=== PATIENT | female | born 1975 | race Hispanic/Latino ===

== ENCOUNTER 2019-09-07 16:14 | Inpatient (IN) ==
--- NOTE | 2019-09-07 16:44 | PROVIDER DOCUMENTATION ---
HPI-Neurological Disorder - General Chief Complaint: Altered Mental Status Stated Complaint: ams Time Seen by Provider: 09/07/19 16:25 Source: family ( and family friend) Allergies/Adverse Reactions: Patient Allergies Allergy/AdvReac Type Severity Reaction Status Date / Time No Known Allergies Allergy Verified 09/07/19 17:38 Home Medications: Home Medication List Medication Instructions Recorded Confirmed Last Taken Type Omeprazole [Prilosec] 40 mg PO DAILY #30 capsule. 07/13/18 Unknown Rx - History of Present Illness-Neuro Nature of Presenting Problem: Patient and are Scottish speaking but spoke through a bilingual family friend. Patient was said to have been anxious after breakfast today and was pacing back and forth at home today. Around 2 am today, pt was said to have difficulty speaking and also problem with comprehension. When she did speak, her speech was confusing and she could not obey commands either in [place] or [place] which was new and is surprised at this. No previous sxs, fall or injury She has a h/o of thyroid dz and has not had meds in a long time Context: reports: found unresponsive by family (awake, inappropriate response) Character of Altered Mental Status: reports: confused Any recent trauma/injury?: reports: none Cognitive Baseline: alert but disoriented Associated Symptoms: reports: confusion Similar Symptoms Previously?: No Review of Systems - Adult - REVIEW OF SYSTEMS - ADULT ROS:: ROS per family Constitutional: reports: no symptoms reported Eyes: reports: no symptoms reported Ears, Nose, Mouth & Throat: reports: no symptoms reported Cardiovascular: reports: no symptoms reported Respiratory: reports: no symptoms reported Gastrointestinal: reports: no symptoms reported Genitourinary: reports: no symptoms reported Musculoskeletal: reports: no symptoms reported Integumentary: reports: no symptoms reported Neurological: reports: see HPI. denies: headache/migraines, loss of balance, seizure, syncope Psychiatric: reports: anxiety. denies: alcohol/drug dependence, depression, suicidal thoughts Endocrine: reports: no symptoms reported Hematologic/Lymphatic: reports: no symptoms reported Allergic/Immunologic: reports: no symptoms reported All Other Systems: Reviewed and Negative Past History - Adult - PAST MEDICAL HISTORY-ADULT Review of Records: reports: Nursing Assessment Review, Medications Reviewed, Social history reviewed & non-contributory. Major Childhood Illnesses: reports: denies history Cardiovascular: reports: denies history Respiratory: reports: denies history Gastrointestinal: reports: denies history Obstetrical/Gynecological: reports: denies history Genitourinary: reports: denies history Musculoskeletal: reports: denies history Neurological: reports: denies history Endocrine/Immune: reports: thyroid disorder Other Conditions: reports: denies history - SOCIAL HISTORY Smoking: denies (per ) Substance Use: none/never (per ) Alcohol Use Frequency: never (per ) Living Situation: family Physical Exam- Neurological - Physical Exam-Neuro Initial Vital Signs Reviewed: Yes General Appearance: alert (looking apprehensive) Eye Exam: bilateral eye: normal inspection, PERRL HENMT: normocephalic/atraumatic, moist mucous membranes Head Injury: no evidence of injury Neck: non-tender, full range of motion, supple Respiratory: chest non-tender, lungs clear, normal breath sounds Cardiovascular: regular rate, rhythm, no edema Abdominal Exam: non tender, soft Peripheral Pulses: radial (R): 3+, radial (L): 3+ Extremity: non-tender, no pedal edema director sales support Exam: PERRL Neurologic: other (unable to follow commands though awake and allert) Integumentary: normal color Psych/Mental Status: anxious - Glascow Coma Scale Best Eye Response: (4) open spontaneously Best Verbal Response: (4) confused conversation Best Motor Response: (4) withdraws to pain Progress - PLAN OF CARE/RESULTS Progress/Plan/Lab Results: Vital Signs - 8 hr 09/07/19 15:32 09/07/19 15:54 09/07/19 16:00 Temperature 98.5 F Pulse Rate 80 69 Respiratory Rate 17 Blood Pressure 155/94 146/96 O2 Sat by Pulse Oximetry 97 99 100 09/07/19 16:15 09/07/19 16:22 09/07/19 16:30 Temperature Pulse Rate 62 69 65 Respiratory Rate 15 13 18 Blood Pressure 129/89 O2 Sat by Pulse Oximetry 99 89 L 96 09/07/19 16:31 09/07/19 16:45 09/07/19 17:00 Temperature Pulse Rate 61 63 77 Respiratory Rate 0 L 16 19 Blood Pressure 131/84 139/92 O2 Sat by Pulse Oximetry 90 L 99 100 09/07/19 18:01 09/07/19 18:30 09/07/19 18:32 Temperature Pulse Rate 77 Respiratory Rate 26 H 22 21 Blood Pressure 152/84 72/44 O2 Sat by Pulse Oximetry 100 99 09/07/19 18:40 09/07/19 19:00 Temperature Pulse Rate Respiratory Rate 42 H 18 Blood Pressure 146/96 141/92 O2 Sat by Pulse Oximetry 95 Laboratory Results - last 24 hr 09/07/19 09/07/19 09/07/19 15:20 15:20 15:20 WBC RBC Hgb Hct MCV MCH MCHC RDW Std Deviation Plt Count MPV Immature Gran % (Auto) Neut % (Auto) Lymph % (Auto) Josephine % (Auto) Eos % (Auto) Baso % (Auto) Immature Gran # (Auto) Neut # (Auto) Lymph # (Auto) Josephine # (Auto) Eos # (Auto) Baso # (Auto) PT INR PTT (Actin FS) Sodium Potassium Chloride Carbon Dioxide Anion Gap BUN Creatinine Estimated GFR/1.73 m2 BUN/Creatinine Ratio Glucose POC Glucose Calculated Osmolality Calcium Total Bilirubin AST ALT Alkaline Phosphatase Troponin T Total Protein Albumin Globulin Albumin/Globulin Ratio TSH Urine Source CLEAN CATCH Urine Color STRAW Urine Turbidity CLEAR Urine pH 7.5 Ur Specific Bud 1.010 Urine Protein NEGATIVE Ur Glucose (Stick) NEGATIVE Ur Ketones (Stick) NEGATIVE Urine Blood NEGATIVE Urine Nitrite NEGATIVE Urine Bilirubin NEGATIVE Urobilinogen Dipstick NORMAL Urine Leukocytes NEGATIVE Urine WBC (Auto) <10 Urine RBC (Auto) <10 U Epithel Cells (Auto) <10 Urine Bacteria (Auto) NEGATIVE Urine Test NEGATIVE Urine Opiates Screen NONE DETECTED Ur Oxycodone Screen NONE DETECTED Ur Methadone, Qual NONE DETECTED Ur Barbiturates Screen NONE DETECTED Ur Phencyclidine Scrn NONE DETECTED Ur Amphetamines Screen NONE DETECTED U Benzodiazepines Scrn NONE DETECTED Urine Cocaine Screen NONE DETECTED U Cannabinoids Screen NONE DETECTED 09/07/19 09/07/19 09/07/19 16:27 16:27 16:27 WBC 6.80 RBC 4.16 L Hgb 11.1 L Hct 34.9 L MCV 83.9 MCH 26.7 L MCHC 31.8 L RDW Std Deviation 15.3 H Plt Count 427 H MPV 9.4 Immature Gran % (Auto) 0.0 Neut % (Auto) 74.2 Lymph % (Auto) 16.6 L Josephine % (Auto) 5.7 Eos % (Auto) 2.6 Baso % (Auto) 0.9 H Immature Gran # (Auto) 0.00 Neut # (Auto) 5.04 Lymph # (Auto) 1.13 L Josephine # (Auto) 0.39 Eos # (Auto) 0.18 Baso # (Auto) 0.06 PT 13.6 INR 1.03 PTT (Actin FS) 26.8 Sodium 141 Potassium 4.2 Chloride 104 Carbon Dioxide 26 Anion Gap 11 BUN 16 Creatinine 0.6 Estimated GFR/1.73 m2 > 60 BUN/Creatinine Ratio 27 Glucose 110 H POC Glucose Calculated Osmolality 283 Calcium 9.5 Total Bilirubin < 0.15 L AST 10 ALT 8 L Alkaline Phosphatase 69 Troponin T Total Protein 7.0 Albumin 4.2 Globulin 2.8 Albumin/Globulin Ratio 1.5 TSH Urine Source Urine Color Urine Turbidity Urine pH Ur Specific Bud Urine Protein Ur Glucose (Stick) Ur Ketones (Stick) Urine Blood Urine Nitrite Urine Bilirubin Urobilinogen Dipstick Urine Leukocytes Urine WBC (Auto) Urine RBC (Auto) U Epithel Cells (Auto) Urine Bacteria (Auto) Urine Test Urine Opiates Screen Ur Oxycodone Screen Ur Methadone, Qual Ur Barbiturates Screen Ur Phencyclidine Scrn Ur Amphetamines Screen U Benzodiazepines Scrn Urine Cocaine Screen U Cannabinoids Screen 09/07/19 09/07/19 09/07/19 16:27 16:27 17:23 WBC RBC Hgb Hct MCV MCH MCHC RDW Std Deviation Plt Count MPV Immature Gran % (Auto) Neut % (Auto) Lymph % (Auto) Josephine % (Auto) Eos % (Auto) Baso % (Auto) Immature Gran # (Auto) Neut # (Auto) Lymph # (Auto) Josephine # (Auto) Eos # (Auto) Baso # (Auto) PT INR PTT (Actin FS) Sodium Potassium Chloride Carbon Dioxide Anion Gap BUN Creatinine Estimated GFR/1.73 m2 BUN/Creatinine Ratio Glucose POC Glucose 112 H Calculated Osmolality Calcium Total Bilirubin AST ALT Alkaline Phosphatase Troponin T < 0.010 Total Protein Albumin Globulin Albumin/Globulin Ratio TSH 4.61 H Urine Source Urine Color Urine Turbidity Urine pH Ur Specific Bud Urine Protein Ur Glucose (Stick) Ur Ketones (Stick) Urine Blood Urine Nitrite Urine Bilirubin Urobilinogen Dipstick Urine Leukocytes Urine WBC (Auto) Urine RBC (Auto) U Epithel Cells (Auto) Urine Bacteria (Auto) Urine Test Urine Opiates Screen Ur Oxycodone Screen Ur Methadone, Qual Ur Barbiturates Screen Ur Phencyclidine Scrn Ur Amphetamines Screen U Benzodiazepines Scrn Urine Cocaine Screen U Cannabinoids Screen Orders Category Date Time Status Cardiac Monitoring DIRECTED Care 09/07/19 16:29 Active Finger Stick Blood Sugar (ED) DIRECTED Care 09/07/19 16:29 Completed Saline Loc NOW Care 09/07/19 16:29 Active CHEST-PORTABLE [RAD] Stat Exams 09/07/19 16:[address] HEAD W/O CONTRAST [CT] Stat Exams 09/07/19 16:11 Completed CBC WITH ELECTRONIC DIFF [HEME] Stat Lab 09/07/19 16:27 Completed COMPREHENSIVE METABOLIC PANEL [CHEM] Stat Lab 09/07/19 16:27 Completed TEST-URINE [PREG] Stat Lab 09/07/19 15:20 Completed PROTIME WITH INR [COAG] Stat Lab 09/07/19 16:27 Completed PTT [COAG] Stat Lab 09/07/19 16:27 Completed TROPONIN T Stat Lab 09/07/19 16:27 Completed TSH Stat Lab 09/07/19 16:27 Completed URINALYSIS W/POSS RFLX CULT [URINALYSIS] Stat Lab 09/07/19 15:20 Completed URINE DRUG SCREEN Stat Lab 09/07/19 15:20 Completed Ondansetron [Zofran] Med 09/07/19 18:49 Discontinued 4 mg IV NOW ONE Ondansetron [Zofran] Med 09/07/19 20:19 Discontinued 4 mg IV NOW ONE EKG [EKG] Stat Ther 09/07/19 16:29 Draft Result Diagrams: 09/07/19 16:27 09/07/19 16:27 - REASSESSMENT Reassessment #1 Time Reassessed: 19:50 Status: unchanged (still confused, still nauseous. Will give zofran and admit pt) - CONSULTS/PCP/HOSPITALIST Notification #1 *Consult/PCP/Hospitalist*: Dr Reid Time Discussed: 20:18 Consult Disposition: Admit (accepts admission) Departure - Departure Date of Disposition Decision: 09/07/19 Time of Disposition Decision: 20:20 DIAGNOSIS: Altered mental state Disposition: ADMITTED INPATIENT 09 Certified Medical Emergency: Emergent Condition: Fair Referrals and Follow-Ups: None,PCP [Primary Care Provider] - - Critical Care Note This patient required my direct & personal management of CC.: No Attestation - Physician/ LANRE Attestation Patient care was provided by Advanced Practice Provider:: No The physician spent face to face time with patient:: Yes Advanced Practice Provider documentation review:: Supervising physician onsite and consulted in the evaluation and care of this patient. The physician did have a face to face encounter with the patient.
[2019-09-07 16:54] LABS: URINE SOURCE CLEAN CATCH
[2019-09-07 16:56] LABS: BASO# 0.06 X1000 (0.0-0.2); BASO% 0.9 % (0.0-0.8); EOS# 0.18 X1000 (0.0-0.7); EOS% 2.6 % (0.0-10.0); HEMATOCRIT 34.9 % (37.0-47.0); HEMOGLOBIN 11.1 g/dL (12.0-16.0); LYMPH# 1.13 X1000 (1.2-3.4); LYMPH% 16.6 % (20.5-51.1); MCH 26.7 PG (27-31); MCHC 31.8 g/dL (33-37); MCV 83.9 FL (81-99); MONO# 0.39 X1000 (0.11-0.59); MONO% 5.7 % (1.7-9.3); MPV 9.4 FL (7.4-10.4); NEUT# 5.04 X1000 (1.4-6.5); NEUT% 74.2 % (42.2-75.2); PLT 427 X1000 (130-400); RBC 4.16 XMIL (4.2-5.4); RDW 15.3 % (11.5-14.5)
[2019-09-07 16:57] LABS: BILIRUBIN URINE NEGATIVE (NEGATIVE); BLOOD URINE NEGATIVE (NEGATIVE); COLOR STRAW; GLUCOSE URINE NEGATIVE (NEGATIVE); KETONE URINE NEGATIVE (NEGATIVE); LEUKOCYTES URINE NEGATIVE (NEGATIVE); NITRITE URINE NEGATIVE (NEGATIVE); PH URINE 7.5; PROTEIN URINE NEGATIVE (NEGATIVE); TURBIDITY URINE CLEAR (CLEAR); UR EPITHELIAL CELLS <10 /HPF (<10); URINE BACTERIA NEGATIVE /HPF; URINE RBC <10 /HPF (<10); URINE WBC <10 /HPF (<10); UROBILINOGEN URINE NORMAL (NORMAL)
--- NOTE | 2019-09-07 17:04 | Diag Imaging Result Doc PS360 ---
EXAM: CHEST-PORTABLE 09/07/2019 HISTORY: stroke like symptoms TECHNIQUE: AP portable upright at 1656 COMMENT: There is no evidence of acute cardiac or pulmonary disease. The heart size appears smaller than on 07/12/2018. Otherwise are has been no significant change. IMPRESSION: No acute disease. Electronically signed by Alfredo Ni 09/07/2019 5:01 PM
[2019-09-07 17:08] LABS: INR 1.03; PROTIME 13.6 Seconds (11.0-16.0); PTT 26.8 Seconds (22.3-41.8)
[2019-09-07 17:08] LABS: UR AMPHETAMINES QUAL NONE DETECTED (NONE DETECT); UR BARBITUATES QUAL NONE DETECTED (NONE DETECT); UR BENZODIAZEPIN QUAL NONE DETECTED (NONE DETECT); UR CANNABINOIDS QUAL NONE DETECTED (NONE DETECT); UR COCAINE QUAL NONE DETECTED (NONE DETECT); UR METHADONE QUAL NONE DETECTED (NONE DETECT); UR OPIATES QUAL NONE DETECTED (NONE DETECT); UR OXYCODONE QUAL NONE DETECTED (NONE DETECT); UR PCP QUAL NONE DETECTED (NONE DETECT)
[2019-09-07 17:15] LABS: AGAP 11; ALB/GLOB RATIO 1.5; ALBUMIN 4.2 g/dL (3.5-5.0); ALKALINE PHOSPHATASE 69 U/L (32-104); BUN 16 mg/dL (8-22); CALCIUM 9.5 mg/dL (8.8-10.2); CHLORIDE 104 mmol/L (98-107); COSMO 283; CREATININE 0.6 mg/dL (0.5-0.9); ESTIMATED GFR > 60; GLUCOSE 110 mg/dL (70-104); GOT 10 U/L (10-30); GPT 8 U/L (10-36); POTASSIUM 4.2 mmol/L (3.5-5.1); SODIUM 141 mmol/L (136-145); TCO2 26 mmol/L (25-35); TOTAL BILIRUBIN < 0.15 mg/dL (0.20-1.00)
--- NOTE | 2019-09-07 17:31 | EKG Report ---
Test Performed on : 09/07/2019 4:56:26 PM Test Reason : Stroke like symptoms Blood Pressure : / mmHG Vent. Rate : 059 BPM Atrial Rate : 059 BPM P-R Int : 142 ms QRS Dur : 082 ms QT Int : 408 ms P-R-T Axes : 051 006 008 degrees QTc Int : 403 ms Sinus bradycardia. Cannot rule out Anterior infarct , age undetermined Abnormal ECG When compared with ECG of 13-JUL-2018 06:54, No significant change was found Unconfirmed Result
--- NOTE | 2019-09-07 17:58 | Diag Imaging Result Doc PS360 ---
EXAM: CT HEAD W/O CONTRAST 09/07/2019 HISTORY: altered mental status TECHNIQUE: This exam was performed using automated exposure control, adjustment of mA or kV according to patient size, and/or use of iterative reconstruction technique. COMMENT: There is no evidence of mass effect, bleed, or abnormal extra-axial fluid collection. The calvarium is intact. The visualized paranasal sinuses are clear. The left mastoid air cells are hypoplastic. IMPRESSION: No evidence of acute intracranial disease. Electronically signed by Alfredo Ni 09/07/2019 5:56 PM
[2019-09-07] MEDS ORDERED: ZOFRAN IV ONE ×2 (18:49→20:19)
[2019-09-08] MEDS ORDERED: PHENERGAN IV PRN (01:20)
[2019-09-08] MEDS ORDERED: SODIUM CHLORIDE 0.9% INJ PRN (01:20)
[2019-09-08] MEDS: NS 1,000 ML IV SCH ×3 (01:40→21:53)
--- NOTE | 2019-09-08 01:55 | HISTORY AND PHYSICAL ---
CHIEF COMPLAINT: Altered mental status. HISTORY OF PRESENTING ILLNESS: A 54-year-old female with a history of hypothyroidism and depression who is brought to the emergency department due to patient being altered and confused. Apparently she was not making sense when she was talking and family could not understand what was going on. The patient is mostly Haitian speaking and most of the history is obtained from other family members. The patient at time of my examination was moderately confused and did not really make any sense with any answers regarding any questions asked. PAST MEDICAL HISTORY: Includes hypothyroidism, depression. PAST SURGICAL HISTORY: Unknown. ALLERGIES: No known drug allergies. CURRENT MEDICATIONS: Family does not recall. Nursing staff will reconcile. SOCIAL HISTORY: No history of smoking, alcohol or illicit drug use. FAMILY HISTORY: No history of coronary artery disease. REVIEW OF SYSTEMS: Limited due to patient being altered. PHYSICAL EXAMINATION: GENERAL: The patient is resting comfortably but is moderately confused. VITAL SIGNS: Temperature 98.5 degrees, pulse 88, respiration 17, blood pressure 155/94. HEENT: Atraumatic, normocephalic. PERRLA. NECK: No masses. CHEST: Clear to auscultation. CARDIOVASCULAR: Regular rate and rhythm. ABDOMEN: Soft, positive bowel sounds. EXTREMITIES: No edema. NEUROLOGIC: She is awake and alert. However, she is moderately confused. GENITOURINARY: No bladder distention. SKIN: Warm. LABORATORIES AND STUDIES: WBC 6.80, hemoglobin 11.1, hematocrit 34.9, platelets 427,000. Sodium 141, potassium 4.2, chloride 104, CO2 is 26, BUN is 16, creatinine is 0.6, glucose 110. TSH is 4.61. Urine is negative. CT of the head, no evidence of any acute intracranial disease. Chest x- ray, no acute disease. ASSESSMENT: A 44-year-old female with a history of hypothyroidism and depression who had presented to emergency department due to patient being altered and moderately confused. Apparently, family was concerned she was not making any sense with any of her answers to questions given. She was seen in the ED and due to her presenting symptoms she will need admission for further management. 1. Altered mental status. 2. Depression with psychotic episode and paranoia. 3. Hypothyroidism. PLAN: 1. We will admit patient to medical floor with telemetry. 2. We will continue with neuro checks. 3. We will consult Neurology. 4. We may need to consult Psychiatry once she is cleared from Neurology. 5. We will restart her home medications. 6. Put patient on DVT prophylaxis with SCD. 7. We will continue to follow, reassess and make further recommendation based on patient's clinical course. cc: Luis Reid MD MTDD
[2019-09-08] MEDS: SYNTHROID PO SCH (06:06)
[2019-09-08 08:14] LABS: BASO# 0.02 X1000 (0.0-0.2); BASO% 0.2 % (0.0-0.8); HEMATOCRIT 33.2 % (37.0-47.0); HEMOGLOBIN 10.3 g/dL (12.0-16.0); MCH 26.3 PG (27-31); MCV 84.9 FL (81-99); MONO# 0.77 X1000 (0.11-0.59); MONO% 7.2 % (1.7-9.3); MPV 9.4 FL (7.4-10.4); NEUT# 8.56 X1000 (1.4-6.5); NEUT% 79.6 % (42.2-75.2); PLT 413 X1000 (130-400); RBC 3.91 XMIL (4.2-5.4); RDW 15.3 % (11.5-14.5); WBC 10.75 X1000 (4.8-10.8)
[2019-09-08 08:37] LABS: AGAP 14; BUN 17 mg/dL (8-22); CALCIUM 9.3 mg/dL (8.8-10.2); CHLORIDE 103 mmol/L (98-107); COSMO 281; CREATININE 0.5 mg/dL (0.5-0.9); ESTIMATED GFR > 60; GLUCOSE 108 mg/dL (70-104); POTASSIUM 3.8 mmol/L (3.5-5.1); SODIUM 140 mmol/L (136-145); TCO2 23 mmol/L (25-35)
--- NOTE | 2019-09-08 12:31 | PROGRESS NOTE ---
DATE: 09/08/2019 SUBJECTIVE: The patient was sleeping when I evaluated her. She was able to wake up and she sat by herself. I do not see any weakness or facial deviation, but she started talking nonsense and I did understand most of the words, most of them were in [place], but she was not making any sense. Her was at the bedside. He was speaking [place] also with me, she is not able to say her name, date of . She is not able to say her 's name. As per the , this is the first time that this ever happened ever happened, she never had this kind of problem before. As per the nurse, she told her that she has been hearing some voices and she has a headache. Neurology Department has been consulted. CT scan of the head did not show any abnormality. I will probably get an MRI to rule out any stroke in the frontal area tomorrow, but probably this patient will need to be seen by psychiatric department. OBJECTIVE: Vital Signs: Temperature 98.4 degrees, pulse 73, respiratory rate 18, blood pressure 123/76, oxygen saturation 100% on room air. HEENT: Head normocephalic, no trauma, PERRLA. Neck: Supple, no JVD. No masses. Central trachea. Chest: Clear to auscultation. No wheezing. No rales. Abdomen: Soft, nontender, nondistended. No hepatosplenomegaly. Extremities: No edema, no clubbing, no cyanosis. Neurological: This patient is sleepy, but arousable. She was able to sit by herself. I do not see any focal weakness. She is moving all 4 extremities spontaneously. She is talking nonsense and in [place] and some of the words I am not able to understand, the which is at the bedside and he is also speaking [place]. He does not understand what she says as well. Her speech is not slurred. LABORATORY: WBC 10.7, hemoglobin 10.3, hematocrit 33.2, platelets 413,000, sodium 140, potassium 3.8, chloride 103, bicarbonate 23, BUN 17, creatinine 0.5, glucose 108, calcium 9.3. ASSESSMENT AND PLAN: 1. Altered mental status, it looks like this is the first time that this patient has this kind of symptoms, as per the this started yesterday around 2 p.m. I am not quite sure but apparently she has a past medical history of depression and anxiety. She also has a history of hypothyroidism. 2. I will get an MRI of the head tomorrow and I will ask Neurology Department to evaluate this patient. If we rule out all the organic problems, likely we will need to call the Psychiatry Department to evaluate this patient. But we will monitor for now. 3. Hypothyroidism. Continue with Synthroid. 4. As per the , she has a history of anxiety, apparently she has been under a lot of stress recently. cc: Ceasar Pelayo MD
[2019-09-08] MEDS: TYLENOL PO PRN (16:19)
[2019-09-08] MEDS: LOTRIMIN 1% CREAM TOP SCH ×2 (16:19→20:02)
[2019-09-09] MEDS: SYNTHROID PO SCH (06:08)
[2019-09-09] MEDS: LOTRIMIN 1% CREAM TOP SCH ×2 (09:00→21:46)
--- NOTE | 2019-09-09 12:41 | Diag Imaging Result Doc PS360 ---
EXAM: MRI BRAIN W/WO CONTRAST INDICATION: Encephalopathy, R/O stroke COMPARISON: None. FINDINGS: There is no evidence of acute infarct. There is abnormal patchy T2/FLAIR hyperintensity involving the subcortical white matter throughout the brain including the frontal, parietal, occipital, and temporal lobes. There is also a focus of abnormal signal in the periventricular white matter on the right. There is no associated enhancement and no restricted diffusion. This pattern is nonspecific. However, viral encephalitis and demyelinating processes such as acute disseminated encephalomyelitis are differential considerations. There is no discrete intracranial mass, mass effect, or intracranial hemorrhage. There is no abnormal intracranial enhancement. The surrounding soft tissues and bony structures are essentially unremarkable. IMPRESSION: Fairly extensive abnormal patchy T2/FLAIR white matter signal hyperintensity involving both cerebral hemispheres that is predominantly subcortical. This pattern is nonspecific. Consider viral encephalitis or a demyelinating process. Electronically signed by John Jaramillo 09/09/2019 12:38 PM
[2019-09-09] MEDS ORDERED: XYLOCAINE 1%/EPI 1:100,000 INJ ONE ×2 (14:50→15:00)
[2019-09-09] MEDS ORDERED: ATIVAN IV ONE ×2 (15:25→16:11)
[2019-09-09] MEDS ORDERED: NS IV SCH (15:30)
[2019-09-09] MEDS ORDERED: VANCOMYCIN IV PER PHARMACY MISC SCH (15:30)
[2019-09-09] MEDS ORDERED: ZOVIRAX IV SCH (15:30)
[2019-09-09] MEDS: NS 1,000 ML IV SCH (16:20)
[2019-09-09] MEDS ORDERED: VANCOMYCIN 2,000 MG in NS 500 ML IV ONE (16:30)
[2019-09-09] MEDS: ROCEPHIN 2 GM in NS 50 ML IV SCH (16:33)
[2019-09-09] MEDS: NS IV SCH (16:33)
[2019-09-09] MEDS: ZOVIRAX IV SCH (16:33)
--- NOTE | 2019-09-09 18:56 | PROGRESS NOTE ---
DATE: 09/09/2019 SUBJECTIVE: The patient is resting comfortably in bed. She is still confused. She is still not able to talk or follow commands. We did an MRI that showed extensive abnormal patchy white matter signal hyperintensity involving both cerebral hemispheres that is predominantly subcortical. This pattern is nonspecific. Consider viral encephalitis or a demyelinating process. Neurology Department evaluated this patient. We had a conversation about treatment and we have decided to put this patient on antibiotics and also antiviral medication IV immediately given her MRI findings. Her neck is soft is supple. I do not see any signs of meningismus, but we will cover that. I will put this patient on ceftriaxone, vancomycin and acyclovir, also Dr. Read will perform a lumbar puncture. OBJECTIVE: Vital Signs: Temperature 98 degrees, pulse 61, respiratory rate 20, blood pressure 118/55, oxygen saturation 100% on room air. HEENT: Head normocephalic, no trauma. PERRLA. Neck: Supple. No JVD. No masses. Central trachea. Chest: Clear to auscultation. No wheezing. No rales. Abdomen: Soft, nontender, nondistended. No hepatosplenomegaly. Extremities: No edema, no clubbing, no cyanosis. Neurological: This patient is sleepy, but arousable. She does not have any focal weakness. Her neck is supple. Her speech is not slurred. I do not see any focal weakness, but she is confused and I cannot understand what she says. LABORATORY: WBC 10, hemoglobin 10.3, hematocrit 33.2, platelets 413. Sodium 140, potassium 3.8, chloride 103, bicarbonate 23, BUN 17, creatinine 0.5, glucose 108, calcium 9.3. ASSESSMENT AND PLAN: 1. Altered mental status. We have an MRI that showed an abnormal patchy white matter signal hyperintensity involving both cerebral hemispheres that is predominantly subcortical. This pattern is nonspecific, and we need to consider a viral encephalitis and/or demyelinating process. I have placed this patient on antibiotics and also acyclovir. I will monitor this patient closely. Neurology department will do a lumbar puncture. We will wait for the results and more recommendations. 2. Hypothyroidism. Continue with Synthroid. 3. She has some urinary retention. I will put a Quintero catheter. I will continue with IV fluids. cc: Ceasar Pelayo MD
--- NOTE | 2019-09-09 20:15 | CONSULTATION ---
DATE OF CONSULTATION: 09/09/2019 REASON FOR CONSULT: Altered mental status. HISTORY OF PRESENT ILLNESS: This is a 44-year-old, right-handed female who was admitted 2 days ago with altered mental status. History is from the patient's via assistance with the film composer phone line. Apparently, the patient had been well prior to onset of her current symptoms. They denied any recent illness of any sort. On Monday morning, she woke up and seemed well, but later that morning went to the restroom and called out for help and has been confused since around this time. She's been mumbling and not speaking coherently. Some of the things that she was saying did not make sense. Sometimes she recognizes her , and other times she does not. She has been confused in the hospital as well. There has been no loss of consciousness or falling. No seizure like events witnessed. She has never had anything like this before. When some of the symptoms started, she was holding her right arm at her side, but that resolved. 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 PAST MEDICAL HISTORY: Hypothyroidism. There is report of depression in the chart. FAMILY HISTORY: No history of neurologic disease. Mother from some type of feminine cancer. Positive diabetes. SOCIAL HISTORY: No tobacco, alcohol, or illicits. She is and has children. ALLERGIES: No known drug allergies listed and confirmed with the patient's . CURRENT MEDICATIONS: He reports she has not been taking her single medication of thyroid pill for some time now. She does take a 1-A-Day multivitamin daily. REVIEW OF SYSTEMS: Unobtainable due to patient's mental status. PHYSICAL EXAMINATION: Vital Signs: Currently afebrile, but she has had a 100.4 temperature yesterday on two occasions. Blood pressure 155/94 on admission, current 123/78. Pulse 60s. Respirations 20. Oxygen saturation 100% on room air. General: Ms. Mccarty is supine in bed with eyes closed. No meningismus. While speaking on the phone to the film composer and to her , she eventually opens her eyes and regards. On formal examination, she tracks. She does not answer questions from the film composer. She seemed to remain alert once she woke up. She does not follow commands. She does not speak. Pupils are equal, round, reactive to bright light. Gaze conjugate. Ocular movements are full and she has full lateral eye movements. Blinks to threat. Face symmetric with equal activation. Tongue is midline. I could not visualize the palate. She is seen to spontaneously move her limbs and with limited testing, I do not detect an underlying focal asymmetry. She responds to mild noxious stimuli in all extremities. Reflexes 1 to 2+ at the wrists bilaterally, 2+ at the knees. I could not get her to relax enough to test at the ankles. No clonus. Plantar response is downgoing. She was unable to cooperate with the remainder of the examination. DIAGNOSTICS: Head CT noncontrast on admission: No acute findings. MRI of the brain personally reviewed. This is with and without contrast, showing extensive abnormal patchy T2 FLAIR white matter signal hyperintensity bilaterally in the cerebral hemispheres, mostly subcortical. No abnormal postcontrast enhancement. LABS: Reviewed in the chart. Normal white count. Platelet count 400,000. Coagulation studies are normal. Normal sodium, BUN, creatinine. Blood sugars mildly elevated. TSH 4.6. Urinalysis and toxicology are negative. ASSESSMENT AND PLAN: Global encephalopathy with abnormal MRI findings as detailed above. Differential includes inflammatory, autoimmune etiologies, Also infectious causes, favoring viral or smoldering etiologies. Other etiologies are not excluded. Given her altered mental status, fever and additionally the MRI findings, will proceed with lumbar puncture at this time. Informed consent was obtained via the use of the film composer line and is in the chart. Will also order contrasted MRI of the cervical and thoracic cord and send labwork. She will need an EEG as well. Thank you for the consultation. Will follow. cc: Henrietta Read MD [facility]
[2019-09-10] MEDS: NS IV SCH ×3 (00:21→16:55)
[2019-09-10] MEDS: ZOVIRAX IV SCH ×3 (00:21→16:55)
[2019-09-10 01:20] LABS: URINE SOURCE CATH
[2019-09-10 01:49] LABS: BILIRUBIN URINE NEGATIVE (NEGATIVE); BLOOD URINE NEGATIVE (NEGATIVE); COLOR YELLOW; GLUCOSE URINE NEGATIVE (NEGATIVE); KETONE URINE 40 mg/dL (NEGATIVE); LEUKOCYTES URINE NEGATIVE (NEGATIVE); NITRITE URINE NEGATIVE (NEGATIVE); PH URINE 6.5; PROTEIN URINE TRACE mg/dL (NEGATIVE); SP GRAVITY URINE 1.017; TURBIDITY URINE HAZY (CLEAR); UROBILINOGEN URINE NORMAL (NORMAL)
[2019-09-10 01:50] LABS: UR EPITHELIAL CELLS <10 /HPF (<10); URINE BACTERIA NEGATIVE /HPF; URINE RBC <10 /HPF (<10); URINE WBC <10 /HPF (<10)
[2019-09-10] MEDS: ROCEPHIN 2 GM in NS 50 ML IV SCH ×2 (03:48→16:54)
[2019-09-10] MEDS: VANCOMYCIN 1,500 MG in NS 250 ML IV SCH ×2 (05:01→16:55)
[2019-09-10] MEDS: NS 1,000 ML IV SCH ×2 (05:01→18:46)
[2019-09-10] MEDS: SYNTHROID PO SCH (06:02)
[2019-09-10 08:00] LABS: BASO# 0.04 X1000 (0.0-0.2); BASO% 0.6 % (0.0-0.8); EOS# 0.07 X1000 (0.0-0.7); HEMATOCRIT 32.9 % (37.0-47.0); HEMOGLOBIN 10.4 g/dL (12.0-16.0); LYMPH# 1.52 X1000 (1.2-3.4); LYMPH% 22.7 % (20.5-51.1); MCH 26.5 PG (27-31); MCHC 31.6 g/dL (33-37); MCV 83.9 FL (81-99); MONO# 0.46 X1000 (0.11-0.59); MONO% 6.9 % (1.7-9.3); MPV 9.4 FL (7.4-10.4); NEUT# 4.61 X1000 (1.4-6.5); NEUT% 68.8 % (42.2-75.2); PLT 330 X1000 (130-400); RBC 3.92 XMIL (4.2-5.4); RDW 14.9 % (11.5-14.5)
[2019-09-10 09:02] LABS: AGAP 14; ALB/GLOB RATIO 1.3; ALBUMIN 3.6 g/dL (3.5-5.0); ALKALINE PHOSPHATASE 48 U/L (32-104); BUN 15 mg/dL (8-22); CALCIUM 8.8 mg/dL (8.8-10.2); CHLORIDE 104 mmol/L (98-107); COSMO 281; CREATININE 0.5 mg/dL (0.5-0.9); ESTIMATED GFR > 60; GLUCOSE 77 mg/dL (70-104); GOT 10 U/L (10-30); GPT 5 U/L (10-36); POTASSIUM 3.5 mmol/L (3.5-5.1); SODIUM 141 mmol/L (136-145); TCO2 23 mmol/L (25-35); TOTAL BILIRUBIN 0.35 mg/dL (0.20-1.00); TOTAL PROTEIN 6.3 g/dL (6.3-8.3)
[2019-09-10] MEDS ORDERED: ATIVAN IV ONE ×2 (09:52→11:45)
--- NOTE | 2019-09-10 09:58 | OPERATIVE NOTE ---
PROCEDURE DATE: 09/09/2019 PROCEDURE PERFORMED: Lumbar puncture. DESCRIPTION OF PROCEDURE: Informed consent was obtained from the patient's using the hand spring repairer telephone line. The patient was prepped and draped in the usual sterile fashion. She was placed in the left lateral decubitus position. Local 1% lidocaine was used to anesthetize the area. The spinal needle was inserted just below the skin. The patient had received some sedation but she was unable to remain still and broke the sterile field. The procedure was aborted. There was no blood loss. cc: Henrietta Read MD [facility]
[2019-09-10] MEDS: LOTRIMIN 1% CREAM TOP SCH ×2 (10:14→22:05)
--- NOTE | 2019-09-10 11:13 | Diag Imaging Result Doc PS360 ---
EXAM: MRI C-SPINE W/WO CONTRAST 09/09/2019 HISTORY: r/o myelopathy TECHNIQUE: T1-T2 and STIR sagittal, post gadolinium-enhanced T1 sagittal and axial, axial T1 and T2. COMMENT: There is no evidence of intrathecal mass or signal abnormality. There is no evidence of bone marrow edema. There is no evidence of abnormal gadolinium enhancement. At the C2-3 level there is no spinal or foraminal stenosis. At C3-4 there is no spinal or foraminal stenosis. At C4-5 there is no evidence of spinal or foraminal stenosis. At C5-6 there is no spinal or foraminal stenosis. At C6-7 there is no evidence of spinal or foraminal stenosis. At C7-T1 there is no spinal or foraminal stenosis. IMPRESSION: No evidence of acute disease. Electronically signed by Alfredo Ni 09/10/2019 11:11 AM
--- NOTE | 2019-09-10 11:15 | Diag Imaging Result Doc PS360 ---
EXAM: MRI THORACIC SPINE W/WO CON 09/09/2019 HISTORY: r/o myelopathy TECHNIQUE: T1-T2 and STIR sagittal, post gadolinium enhanced T1 sagittal fat sat, T1 and T2 axial, post gadolinium T1 axial. COMMENT: There is no evidence of intrathecal or intramedullary mass or signal abnormality. No abnormal gadolinium enhancement is present. There is no evidence of spinal stenosis. There is no evidence of bone marrow edema. IMPRESSION: No evidence of acute disease. Electronically signed by Alfredo Ni 09/10/2019 11:12 AM
[2019-09-10] MEDS ORDERED: ATIVAN ONE (11:43)
[2019-09-10 14:30] LABS: GLUCOSE CSF 45 mg/dL (39-75); PROTEIN CSF 36.5 mg/dL (15-45)
[2019-09-10 14:38] LABS: APPEARANCE CLEAR; RBC BF 117 /cumm; WBC BF 5 /cumm
[2019-09-10 14:39] LABS: APPEARANCE CLEAR; RBC BF 5 /cumm; WBC BF 6 /cumm
--- NOTE | 2019-09-10 16:19 | PROGRESS NOTE ---
DATE: 09/10/2019 SUBJECTIVE: No major overnight events. reports the patient seems a little bit better today. Still not normal. She has been afebrile today. Her last fever was 100.4 on 09/08/2019. Blood pressure 118/60, pulse 60s. Respirations 21, 100% on room air. Ms. Mccarty is asleep as I enter the room. With verbal stimulation, she opens her eyes and smiles. Her translates a bit today, and she seems to respond to him, and the response is appropriate. Additionally, she herself asked questions in Romansh and then subsequently looked to me and said good to indicate that she was feeling good. This was much better than the response I got yesterday. She still seems clearly confused though, not completely attentive. She moved her extremities without obvious focal deficit. Thoracic and cervical spine MRI with and without contrast are unremarkable. White count continues normal. She has normal differential today. ASSESSMENT AND PLAN: Continues global encephalopathy with patchy T2 FLAIR signal abnormalities in the brain. We will continue workup for infectious and inflammatory etiologies as per prior note. Lumbar puncture was successful today, and fluid has been sent off for testing. Agree with continuing the acyclovir. Some lab work will result rather quickly. I will also put in a routine EEG order, but the test may need to be postponed until tomorrow given the sedation that she received for her lumbar puncture today. ADDENDUM: Spoke with patient's sister late this afternoon. Her story differed a bit from what was obtained from patient's , who was certain all symptoms started quickly a few days ago. She says the patient has had behavioral change since about May of last year. She is fixated on cleaning items over and over. For instance, she washes dishes, dries them, then washes them, etc, back to back, repeatedly. She says that someone is trying to make her crazy. She may hallucinate but they are not certain. She puts dishes away but doesn't recall doing so and accuses others of doing it to make her feel crazy. The patient has even gotten lost while driving very familiar areas such as taking kids to and from school. Early on Monday, they noticed she had an unusual posture of her right arm and hand which lasted quite a while but resolved. [place] She is up to date with childhood vaccines, per sister. She has not had recent travel. If symptoms did indeed begin 4 months ago, then ADEM would be less likely. cc: Henrietta Read MD MTDD
[2019-09-10] MEDS: TYLENOL PO PRN (18:45)
--- NOTE | 2019-09-10 19:10 | PROGRESS NOTE ---
DATE: 09/10/2019 SUBJECTIVE: At the moment of my physical exam, this patient was getting a lumbar puncture done, and she received some medication to keep her calm. I discussed the case with the neurologist who was doing the lumbar puncture, and she stated that this patient was better compared with yesterday. At least, she was able to say some words, but for me she was completely sleepy. I discussed the case with the family who were outside of the room. I told them that the cervical spine MRI and the thoracic spine MRI were stable, no evidence of acute disease. I will continue with the same management for now since she is getting a little bit better. Vital signs and lab work are stable. OBJECTIVE: Vital Signs: Temperature 98.2 degrees, pulse 65, respiratory rate 20, blood pressure 120/57, oxygen saturation 100% on room air. HEENT: Head normocephalic. No trauma. PERRLA. Neck: Supple. No JVD. No masses. Central trachea. Chest: Clear to auscultation. No wheezing. No rales. Abdomen: Soft, nontender, nondistended. No hepatosplenomegaly. Extremities: No edema, no clubbing, no cyanosis. Neurological: This patient is sleepy. At the moment of my exam today, she received some medication to be relaxed and sedated, so I could not talk to her. LABORATORY: WBC 6.7, hemoglobin 10.4, hematocrit 32.9, platelets 330,000. Sodium 141, potassium 3.5, chloride 104, bicarbonate 23, BUN 15, creatinine 0.5, glucose 77, calcium 8.8. ASSESSMENT AND PLAN: 1. Altered mental status. Apparently, she is feeling a little bit better. MRI showed an abnormal patchy white matter signal hyperintensity involving both cerebral hemispheres that is predominantly subcortical. This pattern is nonspecific. I will need to consider a viral encephalitis and/or demyelinating process. I will continue with antibiotics and also with acyclovir. Neurology Department performed today a lumbar puncture. Yesterday they could not do it because the patient was moving too much. I will wait for more recommendations, but for now apparently she is getting a bit better. We will continue with same management. 2. Hypothyroidism. Continue with Synthroid. 3. She apparently has some urinary retention. Continue with Quintero catheter placed. Continue with intravenous fluids. cc: Ceasar Pelayo MD
--- NOTE | 2019-09-10 20:55 | OPERATIVE NOTE ---
PROCEDURE DATE: 09/10/2019 PROCEDURE: Lumbar puncture. INDICATION: Rule out infectious, inflammatory condition. ANESTHESIA: Local 1% lidocaine. DESCRIPTION OF PROCEDURE: Informed consent was obtained previously from the patient's and was placed in the chart. The area was prepped and draped in the usual sterile fashion. Using landmarks, a spinal needle was inserted into the lumbar interspace. This was accomplished after 2 attempts. The stylet was removed, and slowly 24 mL of clear CSF was collected and sent to the lab for tests. The patient tolerated the procedure well. There was no blood loss or hematoma. cc: Henrietta Read MD MTDD
[2019-09-11] MEDS: NS IV SCH ×3 (01:02→17:53)
[2019-09-11] MEDS: ZOVIRAX IV SCH ×3 (01:02→17:53)
[2019-09-11] MEDS: ROCEPHIN 2 GM in NS 50 ML IV SCH ×2 (03:04→15:48)
[2019-09-11] MEDS: NS 1,000 ML IV SCH ×2 (05:32→17:54)
[2019-09-11] MEDS: VANCOMYCIN 1,500 MG in NS 250 ML IV SCH ×2 (06:12→19:50)
[2019-09-11] MEDS: SYNTHROID PO SCH (06:12)
[2019-09-11 07:47] LABS: BODY FLUID SOURCE CSF
[2019-09-11] MEDS: LOTRIMIN 1% CREAM TOP SCH ×2 (10:06→21:13)
[2019-09-11 10:21] LABS: FLOW CYTOMETERY SOURCE CSF; LEUKEMIA LYMPHOMA BY FLOW REFERRED FOR TESTING
[2019-09-11] MEDS: TYLENOL PO PRN (12:17)
[2019-09-11 12:19] LABS: VDRL CSF SEE COMMENTS
--- NOTE | 2019-09-11 14:28 | PROGRESS NOTE ---
DATE: 09/11/2019 SUBJECTIVE: The patient is doing remarkably better today. She is awake. She is a little bit more oriented. She is answering to most of my questions. She is eating. She is still confused a little bit and it is really hard for her to understand what is going on right now, but she is much better. I will wait for the recommendations of Neurology Department. She is still on antibiotics and [*] treatment. We will monitor. OBJECTIVE: Vital Signs: Temperature 98.6 degrees, pulse 68, respiratory rate 20, blood pressure 126/73, oxygen saturation 99 on room air. HEENT: Head normocephalic. No trauma. PERRLA. Neck: Supple. No JVD. No masses. Central trachea. Chest: Clear to auscultation. No wheezing. No rales. Abdomen: Soft, nontender, nondistended. No hepatosplenomegaly. Extremities: No edema. No clubbing. No cyanosis. Neurological: The patient is awake. She is oriented. She is following commands. She seems to be confused on and off and it is hard for her to understand what is going on. Her answers are slow though. LABORATORY: No lab work done today. ASSESSMENT AND PLAN: 1. Altered mental status. This is getting much better status post lumbar puncture. We will monitor this patient closely. Continue with the same treatment for now. I will follow the recommendations of Neurology Department. 2. Hypothyroidism. Continue with Synthroid. 3. Apparently this patient had some urinary retention. I will remove the Quintero today to see how she does. She has been on IV fluids. cc: Ceasar Pelayo MD
--- NOTE | 2019-09-11 15:47 | PROGRESS NOTE ---
DATE: 09/11/2019 SUBJECTIVE: Dr. Read saw Ms. Maxwell Mccarty for initial Neurology evaluation. She has imaging evidence of multiple likely inflammatory brain lesions. There was initial global encephalopathy and variable history regarding time of onset. She has been improved day by day. According to family at the bedside today, she is almost completely recovered. She reports minimal headache today. OBJECTIVE: There is not focal neurologic finding on brief bedside exam. She is afebrile. She is awake, alert, attentive, smiling, appropriate. LABORATORY DATA: Spinal fluid showed WBC 6, RBC 5, one tube and WBC 5, RBC 117 in another tube. CSF glucose 45 with nearest serum glucose 77, CSF protein 36.5. Meningitis/encephalitis panel was all negative. Cryptococcal antigen was negative. Gram stain was negative. Cultures are negative to this point. EEG is planned. IMPRESSION: Global encephalopathy, acute or subacute onset, stable course with significant improvement in recent days. The etiology is not certain. Depending on remainder of CSF reports and EEG findings, we might need to consider immunosuppressant treatment. I think it would be reasonable to repeat her brain MRI in a week or two to help with decision making. That can be done sooner if she deteriorates. Thanks for asking Neurology to see Ms. Maxwell Mccarty. cc: Rui Krishna III, MD [facility]
[2019-09-11] MEDS ORDERED: TUBERSOL ID ONE ×2 (17:20→17:59)
--- NOTE | 2019-09-11 20:48 | EEG REPORT ---
DATE: 09/10/2019 BACKGROUND INFORMATION AND TECHNIQUE: This is a digitally recorded routine EEG with video. HISTORY: 44-year-old female patient admitted with altered mental status. EEG is ordered to detect evidence of seizures. MEDICATIONS: Include lorazepam and Phenergan as needed. EEG FINDINGS: A posterior dominant alpha rhythm is not seen. The background at maximal alertness consists of mixed frequencies, alpha, beta, theta, and some delta. Frequent to nearly continuous slowing is seen over the left hemisphere. There are a couple of sharply contoured waveforms maximal in the posterior temporal head region on the left which are not definitely epileptiform. No seizures. Hyperventilation is not performed. Photic stimulation does not alter the record. No definite drowsiness patterns. Stage N2 sleep is not seen. EKG demonstrates regular R-R intervals. IMPRESSION AND CLINICAL CORRELATION: Abnormal routine electroencephalogram due to: 1. Moderate generalized slowing, indicative of a moderate nonspecific encephalopathy. 2. Left hemispheric slowing, which is suggestive of cortical or subcortical abnormality and a lesion in this region should be considered. It is possible that this correlates with previous MRI findings. 3. No definite epileptiform discharges or seizures seen on the current study. This does not rule out an underlying seizure disorder. cc: Henrietta Read MD
[2019-09-12] MEDS: ZOVIRAX IV SCH ×3 (03:04→18:19)
[2019-09-12] MEDS: NS IV SCH ×3 (03:04→18:19)
[2019-09-12] MEDS: ROCEPHIN 2 GM in NS 50 ML IV SCH ×2 (04:03→17:29)
[2019-09-12] MEDS: NS 1,000 ML IV SCH ×2 (04:04→18:19)
[2019-09-12] MEDS: VANCOMYCIN 1,500 MG in NS 250 ML IV SCH ×2 (05:55→19:34)
[2019-09-12] MEDS: SYNTHROID PO SCH (06:06)
[2019-09-12 07:12] LABS: HEMATOCRIT 29.9 % (37.0-47.0); HEMOGLOBIN 9.6 g/dL (12.0-16.0); MCHC 32.1 g/dL (33-37); MCV 84.2 FL (81-99); MPV 9.6 FL (7.4-10.4); RBC 3.55 XMIL (4.2-5.4); RDW 15.4 % (11.5-14.5); WBC 6.05 X1000 (4.8-10.8)
[2019-09-12 07:39] LABS: AGAP 11; BUN 8 mg/dL (8-22); CALCIUM 8.5 mg/dL (8.8-10.2); CHLORIDE 106 mmol/L (98-107); COSMO 284; CREATININE 0.5 mg/dL (0.5-0.9); ESTIMATED GFR > 60; GLUCOSE 103 mg/dL (70-104); POTASSIUM 3.4 mmol/L (3.5-5.1); SODIUM 143 mmol/L (136-145); TCO2 26 mmol/L (25-35)
[2019-09-12] MEDS: TYLENOL PO PRN (08:03)
[2019-09-12] MEDS ORDERED: KLOR-CON PO ONE (08:49)
[2019-09-12] MEDS: LOTRIMIN 1% CREAM TOP SCH (12:32)
--- NOTE | 2019-09-12 13:33 | PROGRESS NOTE ---
DATE: 09/12/2019 SUBJECTIVE: This patient is doing much better compared with admission. She is awake. She is more oriented. She has been having problems remembering names and situations. We had 3 family members at the bedside, and she had problem remembering all of their names. She is following commands. She has been repeating the same questions. I will continue with same management for now. OBJECTIVE: Vital Signs: Temperature 97.8 degrees, pulse 62, respiratory rate 18, blood pressure 109/66, oxygen saturation 100% on room air. HEENT: Head normocephalic, no trauma. PERRLA. Neck: Supple. No JVD. No masses. Central trachea. Chest: Clear to auscultation. No wheezing. No rales. Abdomen: Soft, nontender, nondistended. No hepatosplenomegaly. Extremities: No edema, no clubbing, no cyanosis. Neurological examination: Patient is awake. She is alert, she is following commands. She is oriented to person and place. She had problem remembering the year. She recognized family members at the bedside, but it is really hard for her to say their names, she is not clear about her situation. LABORATORY: WBC 6, hemoglobin 9.6, hematocrit 29.9, platelet 313. Sodium 143, potassium 3.4, chloride 106, bicarbonate 26. BUN 8, creatinine 0.5, glucose 103, calcium 8.5. ASSESSMENT AND PLAN: 1. Altered mental status. This is getting better, but she is still having some problems with her memory. She is getting antibiotics and treatment for viral infection as well. Neurology Department following this patient closely. I will follow their recommendations. So far, all the studies from her cerebrospinal fluid has been negative. 2. Hypothyroidism. Continue with Synthroid. 3. Apparently this patient had urinary retention. Quintero catheter has been removed, and it looks like he is no longer having retention. 4. Hypokalemia. We will replace the potassium. cc: Ceasar Pelayo MD
--- NOTE | 2019-09-12 14:05 | PROGRESS NOTE ---
DATE: 09/12/2019 SUBJECTIVE: Ms Maxwell Mccarty has had stable course over the last 24 hours, according to her and to family at the bedside. She reports minimal bitemporal headache, unchanged or slightly improved since yesterday. DATA: I do not see any new CSF reports. She continues afebrile. EEG showed generalized slowing and slowing a little bit more prominent on the left than the right, probably consistent with the findings on MRI scan. There was no evidence of seizure. RECOMMENDATIONS: In light of her stable course and clinical improvement and apparent resolution of the presenting encephalopathy, I do not think we have to do anything urgently. This may be an inflammatory TUBE BENDER problem, and there is question of autoimmune etiology. I would consider referring her for elective tertiary center neurology opinion. If she needs to be treated locally, I would consider repeating contrast brain MRI as an outpatient in a week or 2, and then make decision regarding immunosuppressant treatment. Thanks for asking Neurology to see Ms. Maxwell Mccarty. cc: MD JANEE Najera III
[2019-09-13] MEDS: NS IV SCH ×2 (00:09→10:09)
[2019-09-13] MEDS: ZOVIRAX IV SCH ×2 (00:09→10:09)
[2019-09-13] MEDS: ROCEPHIN 2 GM in NS 50 ML IV SCH (04:08)
[2019-09-13] MEDS: LOTRIMIN 1% CREAM TOP SCH ×2 (04:08→10:12)
[2019-09-13] MEDS: NS 1,000 ML IV SCH ×2 (04:09→14:34)
[2019-09-13] MEDS: VANCOMYCIN 1,500 MG in NS 250 ML IV SCH (05:53)
[2019-09-13] MEDS: SYNTHROID PO SCH (06:01)
[2019-09-13 08:08] LABS: AGAP 14; BUN 11 mg/dL (8-22); CALCIUM 9.1 mg/dL (8.8-10.2); CHLORIDE 108 mmol/L (98-107); COSMO 286; CREATININE 0.4 mg/dL (0.5-0.9); ESTIMATED GFR > 60; GLUCOSE 97 mg/dL (70-104); POTASSIUM 4.4 mmol/L (3.5-5.1); SODIUM 144 mmol/L (136-145); TCO2 22 mmol/L (25-35)
[2019-09-13 08:22] VITALS: BP 112/71
[2019-09-13] MEDS: TYLENOL PO PRN (10:17)
--- NOTE | 2019-09-13 15:11 | PROGRESS NOTE ---
DATE: 09/13/2019 Ms. Anna is doing well today, awake, alert, attentive, cheerful, appropriate. I observed her carrying on conversation with family. There is no dysarthria. Headache is improved. She has no complaints today. She would like to go home. LABORATORY DATA: Some more CSF reports have come in. CSF ANGELA was normal at 1.2. The total CSF IgG was normal at 4.9, and CSF albumin was near the lower limit of normal at 3160 producing an elevated IgG/albumin ratio. The IgG index was elevated at 1.0. Cultures remain negative. ASSESSMENT/PLAN: In light of her stable course with improvement and encephalopathy resolved, I think it would be reasonable to consider discharge with plans for neurology follow-up locally or at a tertiary center. I discussed that with patient and family at the bedside. My preference is that she have a tertiary center appointment to consider immunomodulator therapy options. If we are to follow here, I would like to repeat her MRI with contrast in a few weeks or months and then make decisions. Work up decisions would need to be considered sooner if she deteriorates. Thanks for asking Neurology to see Ms. Gale. cc: MD JANEE Najera III
[2019-09-13] MEDS ORDERED: FLU VACCINE IM ONE (15:40)
--- NOTE | 2019-09-14 22:35 | DISCHARGE SUMMARY ---
ADMISSION DATE: 09/07/2019 DISCHARGE DATE: 09/13/2019 DISCHARGE DIAGNOSES: 1. Altered mental status/encephalopathy, much better. 2. Hypothyroidism. Continue Synthroid. 3. Urinary retention resolved. 4. Hypokalemia resolved. HOSPITAL COURSE: A 44-year-old female with a past medical history of hypothyroidism and depression brought to the emergency department and admitted on 09/07/2019 due to confusion, apparently she was not making any sense when she was talking and the family could not understand what was going on. The patient is mostly [place] speaking and most of the story is obtained from other family members. The patient at the time of the examination was moderately confused and did not really make any sense with any answers regarding any questions asked, as per the , everything started the day before of admission around 2 p.m., we obtained an MRI that showed a fairly extensive abnormal patchy T2 FLAIR white matter signal hyperintensity involving both cerebral hemispheres that is predominantly subcortical. This pattern is nonspecific, consider viral encephalitis or the [*] process, this patient was placed on antibiotics, she was placed on ceftriaxone, vancomycin and also acyclovir IV, we did a cervical and thoracic spine MRI that did not show any abnormality. Neurology Department evaluated this patient and they followed this patient closely. Electroencephalogram showed abnormal routine electroencephalogram due to moderate generalized slowing indicative of moderate nonspecific encephalopathy, the left hemispheric slowing which is suggestive of cortical or subcortical abnormality and a lesion in this region should be considered, it is possible that is correlated with previous MRI findings, no definite epileptiform discharges or seizures seen on the current study, this does not rule out an underlying seizure disorder, the patient was improving after getting also IV fluids slowly on a daily basis and today it looks like she completely recovered. At the beginning she was not able to talk or follow commands. Today she is able to recognize family members, names and following commands and answering question. No problem with urination or walking, we believe that probably this could be related to an autoimmune etiology, since this patient improved significantly she will be discharged today but she will be followed as an outpatient really closely by Neurology Department, at the moment of discharge this patient was in a stable medical condition, tolerating p.o. and ambulating by herself. Lab work stable, some of the laboratories are pending at this moment and these will be checked by Neurology Department in the future. I instructed the family to bring this patient over here or go directly to another hospital if she has some mental status changes. OBJECTIVE: Vital Signs: Temperature 97.5 degrees, pulse 70, respiratory rate 16, blood pressure 112/71, oxygen saturation 100% on room air. HEENT: Head normocephalic, no trauma. PERRLA. Neck: Supple. No JVD. No masses. Central trachea. Chest: Clear to auscultation. No wheezing, no rales. Abdomen: Soft, nontender, nondistended. No hepatosplenomegaly. Extremities: No clubbing, no cyanosis. Neurological: Today this patient is completely awake, alert, and oriented x3. No focal neurological deficits. LABORATORY: Sodium 144, potassium 4.4, chloride 108, bicarbonate 22, BUN 11, creatinine 0.4, glucose 97, calcium 9.1. CRP high sensitivity 0.1. DISCHARGE MEDICATIONS: Clotrimazole cream 1 application b.i.d. and levothyroxine 25 mcg p.o. daily. Time discharging this patient and explaining all the situation to the family around 25 minutes. cc: Ceasar Pelayo MD
[2019-09-14 23:34] LABS: HIV ANTIBODY SCREEN SEE COMMENTS
[2019-09-16 11:13] LABS: ANTINEUTROPHIL CYTOPLASMIC AB SEE COMMENTS
[2019-09-16 13:19] LABS: LYME DISEASE SCREEN SEE COMMENTS
[2019-09-18 16:45] LABS: LYME DISEASE WESTERN BLOT SEE COMMENTS
== END 2019-09-13 16:35 | disposition home or self-care (01) | DRG 72 ==
LOC: ED 16:14 → 3N 23:51 → SUATTDRO 23:51
PROVIDERS: ATTEND Internal Medicine